=== PATIENT | male | born 1955 | race Caucasian/White ===

== ENCOUNTER 2016-09-30 07:21 | Inpatient (IN) | payer BC, OTHER ==
[~2016-09-30] VITALS: Ht 170.2 cm; Wt 87.6 kg
[2016-09-30] MEDS ORDERED: SODIUM CHLORIDE 0.9% 1000ML 1,000 ML IV STA (07:42)
[2016-09-30 07:52] LABS: BASO % 0.2 %; BASO ABS # 0.01 K/uL (0-0.2); COMPLETE YES; EOS % 3.1 %; HEMATOCRIT 32.5 % (42-52); IG% 0.2 %; LYMPH % 22.9 %; LYMPH ABS # 1.46 K/uL (1.2-3.4); MEAN CELL VOLUME 89.5 fL (80-100); MEAN CORPUSCULAR HEMOGLOBIN 31.4 pg (25-34); MEAN CORPUSCULAR HGB CONC 35.1 g/dl (32-36); MEAN PLATELET VOLUME 10.5 fL (7.4-10.4); MONO % 5.6 %; PLATELET COUNT 151 K/uL (130-400); RED BLOOD COUNT 3.63 M/uL (4.7-6.1); WHITE BLOOD COUNT 6.38 K/uL (4.8-10.8)
[2016-09-30 07:56] LABS: ISTAT CREATININE 0.7 mg/dl (0.6-1.3); ISTAT HEMOGLOBIN 10.9 g/dl (14.0-18.0); ISTAT IONIZED CALCIUM 1.3 mmol/l (1.12-1.32)
[2016-09-30] MEDS ORDERED: PANTOprazole INJ 80 MG in DEXTROSE 5% 100ML IV SCH (08:00)
[2016-09-30 08:04] LABS: PARTIAL THROMBOPLASTIN RATIO 0.9; PROTHROMBIN TIME (PATIENT) 10.7 SECONDS (9.0-12.0)
[2016-09-30 08:05] LABS: ALT/SGPT 25 U/L (12-78); AST/SGOT 16 U/L (15-37); BLOOD UREA NITROGEN 42 mg/dl (7-18); BUN/CREATININE RATIO 51.4 (10-20); CALCIUM 9.1 mg/dl (8.5-10.1); CARBON DIOXIDE 25 mmol/L (21-32); CHLORIDE 112 mmol/L (98-107); CREATININE 0.81 mg/dl (0.60-1.40); GLUCOSE 117 mg/dl (70-99); POTASSIUM 3.9 mmol/L (3.5-5.1); SODIUM 142 mmol/L (136-145)
[2016-09-30 08:10] LABS: ALKALINE PHOSPHATASE 56 U/L (45-117); CKMB/CK RATIO 2.4 (0-3.0)
[2016-09-30] MEDS ORDERED: CETITAB27 PO (08:10)
[2016-09-30] MEDS ORDERED: CALC500C3 PO (08:11)
[2016-09-30] MEDS ORDERED: PANTOprazole INJ 40 MG in DEXTROSE 5% 100ML IV SCH (08:15)
--- NOTE | 2016-09-30 08:15 | DIAGNOSTIC IMAGING REPORT ---
CHEST ONE VIEW PORTABLE CLINICAL HISTORY: 61 years-old Male presenting with EVALUATE GI BLEED. TECHNIQUE: Portable upright AP view of the chest was obtained. COMPARISON: None. FINDINGS: Cardiomediastinal silhouette normal. Lungs and pleural spaces clear. Osseous structures and upper abdomen normal. IMPRESSION: 1. No acute cardiopulmonary disease. Electronically signed by: Son Denton 09/30/2016 8:14 AM Dictated Date/Time: 09/30/2016 8:13 AM
--- NOTE | 2016-09-30 08:33 | EMERGENCY ROOM VISIT NOTE ---
History Report prepared by Reza: Pj Hicks Under the Supervision of: Dr. Antolin Estrada D.O. First contact with patient: 07:31 Chief Complaint: SYNCOPE (NEAR SYNCOPE) Stated Complaint: NEAR SYNCOPE Nursing Triage Summary: pt reports last night started having diarrhea noticed dark tarry stools this am upon waking had another dark tarry stool, had near syncopal episode upon ems arrival pt was pale and lying on floor felt like he was going to pass out. adb discomfort feeling like he had heartburn for a couple days. took zantac last night. pt is now alert and oriented. no longer pale History of Present Illness The patient is a 61 year old male who presents to the Emergency Room with complaints of lightheadedness occurring this morning. Last night, the patient had an episode of diarrhea with a large amount of blood. This morning when he woke up, he became hot, sweaty, and lightheaded. He had another episode of diarrhea with a large amount of blood this morning. As he was leaving the bathroom, he had worsened lightheadedness and he lowered himself to the floor. He denies any injuries. He did not hit his head. He currently reports mild nausea and lightheadedness. He denies any pain. He denies any abdominal pain, or any other complaints. He had been at baseline prior to the onset of his symptoms. The patient has a history of colonoscopy occurring about 10 years ago and he was treated for an esophageal stricture. He does not have any medical problems. Source of History: patient Onset: this morning Position: other (global) Symptom Intensity: No pain Quality: other (lightheadedness) Associated Symptoms: + nausea, No abdominal pain Review of Systems See HPI for pertinent positives & negatives. A total of 10 systems reviewed and were otherwise negative. Past Medical & Surgical Medical Problems: (1) Dysphagia (2) Esophageal stricture Surgical Problems: (1) H/O colonoscopy Family History Patient reports no known family medical history. Social History Smoking Status: Never Smoker Marital Status: Housing Status: lives with family Occupation Status: employed Current/Historical Medications Scheduled Calcium Carbonate (Tums), 2 TAB PO UD Cetirizine/Pseudoephedrine (Zyrtec-D Er 5MG/120MG), 1 TAB PO Q12H Allergies Coded Allergies: No Known Allergies (Unverified , 09/30/16) Physical Exam Vital Signs Date Time Temp Pulse Resp B/P (MAP) Pulse Ox O2 Delivery O2 Flow Rate FiO2 09/30/16 08:18 87 18 111/73 98 Room Air 09/30/16 07:38 82 09/30/16 07:27 97 Room Air 09/30/16 07:27 36.6 87 16 122/76 97 Room Air Physical Exam CONSTITUTIONAL/VITAL SIGNS: Reviewed / noted above. GENERAL: Non-toxic in appearance. There is some dried blood on the patient's legs from his recent event. INTEGUMENTARY: Warm, dry, and [place] Level. HEAD: Normocephalic. EYES: without scleral icterus or trauma. ENT/OROPHARYNX: clear and moist. LYMPHADENOPATHY/NECK: Is supple without lymphadenopathy or meningismus. RESPIRATORY: Lungs clear and equal. CARDIOVASCULAR: Regular rate and rhythm. GI/ABDOMEN: Soft and nontender. No organomegaly or pulsatile mass. No rebound or guarding. Normal bowel sounds. EXTREMITIES: Warm and well perfused. BACK: No CVA tenderness. NEUROLOGICAL: Intact without focal deficits. PSYCHIATRIC: normal affect. MUSCULOSKELETAL: Normally developed with good muscle tone. Medical Decision & Procedures ER Provider Diagnostic Interpretation: X ray results and stated below per my interpretation and radiology interpretation. CHEST ONE VIEW PORTABLE CLINICAL HISTORY: 61 years-old Male presenting with EVALUATE GI BLEED. TECHNIQUE: Portable upright AP view of the chest was obtained. COMPARISON: None. FINDINGS: Cardiomediastinal silhouette normal. Lungs and pleural spaces clear. Osseous structures and upper abdomen normal. IMPRESSION: 1. No acute cardiopulmonary disease. Electronically signed by: Son Denton 09/30/2016 8:14 AM Dictated Date/Time: 09/30/2016 8:13 AM Laboratory Results 09/30/16 07:35 Red Blood Count 3.63, Mean Corpuscular Volume 89.5, Mean Corpuscular Hemoglobin 31.4, Mean Corpuscular Hemoglobin Concent 35.1, Mean Platelet Volume 10.5, Neutrophils (%) (Auto) 68.0, Lymphocytes (%) (Auto) 22.9, Monocytes (%) (Auto) 5.6, Eosinophils (%) (Auto) 3.1, Basophils (%) (Auto) 0.2, Neutrophils # (Auto) 4.34, Lymphocytes # (Auto) 1.46, Monocytes # (Auto) 0.36, Eosinophils # (Auto) 0.20, Basophils # (Auto) 0.01 09/30/16 07:35 Test 09/30/16 07:35 09/30/16 07:43 White Blood Count 6.38 K/uL (4.8-10.8) Red Blood Count 3.63 M/uL (4.7-6.1) Hemoglobin 11.4 g/dL (14.0-18.0) Hematocrit 32.5 % (42-52) Mean Corpuscular Volume 89.5 fL (80-100) Mean Corpuscular Hemoglobin 31.4 pg (25-34) Mean Corpuscular Hemoglobin Concent 35.1 g/dl (32-36) Platelet Count 151 K/uL (130-400) Mean Platelet Volume 10.5 fL (7.4-10.4) Neutrophils (%) (Auto) 68.0 % Lymphocytes (%) (Auto) 22.9 % Monocytes (%) (Auto) 5.6 % Eosinophils (%) (Auto) 3.1 % Basophils (%) (Auto) 0.2 % Neutrophils # (Auto) 4.34 K/uL (1.4-6.5) Lymphocytes # (Auto) 1.46 K/uL (1.2-3.4) Monocytes # (Auto) 0.36 K/uL (0.11-0.59) Eosinophils # (Auto) 0.20 K/uL (0-0.5) Basophils # (Auto) 0.01 K/uL (0-0.2) RDW Standard Deviation 40.0 fL (36.4-46.3) RDW Coefficient of Variation 12.3 % (11.5-14.5) Immature Granulocyte % (Auto) 0.2 % Immature Granulocyte # (Auto) 0.01 K/uL (0.00-0.02) Prothrombin Time 10.7 SECONDS (9.0-12.0) Prothromb Time International Ratio 1.0 (0.9-1.1) Activated Partial Thromboplast Time 23.8 SECONDS (21.0-31.0) Partial Thromboplastin Ratio 0.9 Est Creatinine Clear Calc Drug Dose 100.9 ml/min Estimated GFR () 110.4 Estimated GFR (Non- 95.3 BUN/Creatinine Ratio 51.4 (10-20) Calcium Level 9.1 mg/dl (8.5-10.1) Total Bilirubin 0.4 mg/dl (0.2-1) Direct Bilirubin 0.1 mg/dl (0-0.2) Aspartate Amino Transf (AST/SGOT) 16 U/L (15-37) Alanine Aminotransferase (ALT/SGPT) 25 U/L (12-78) Alkaline Phosphatase 56 U/L (45-117) Total Creatine Kinase 72 U/L (39-308) Creatine Kinase MB 1.7 ng/ml (0.5-3.6) Creatine Kinase MB Ratio 2.4 (0-3.0) Troponin I < 0.015 ng/ml (0-0.045) Total Protein 5.8 gm/dl (6.4-8.2) Albumin 3.1 gm/dl (3.4-5.0) Bedside Hemoglobin 10.9 g/dl (14.0-18.0) Bedside Hematocrit 32 % (42-52) Bedside Sodium 141 mEq/L (135-144) Bedside Potassium 3.8 mEq/L (3.3-5.0) Bedside Chloride 104 mEq/L (101-112) Bedside Total CO2 24 mEq/l (24-31) Anion Gap 18.0 mmol/L (16-25) Bedside Blood Urea Nitrogen 39 mg/dl (7-18) Bedside Creatinine 0.7 mg/dl (0.6-1.3) Bedside Glucose (other) 122 mg/dl (70-99) Bedside Ionized Calcium (Miguelina) 1.30 mmol/l (1.12-1.32) Laboratory results as stated above per my review. Medications Administered Medications (Trade) Dose Ordered Sig/Karsten Route Start Time Stop Time Status Last Admin Dose Admin Sodium Chloride 1,000 ml @ 150 mls/hr Q6H40M STAT IV 09/30/16 07:42 09/30/16 14:21 09/30/16 08:16 150 MLS/HR Pantoprazole Sodium 80 mg/ Dextrose 120 ml @ 480 mls/hr TODAY@0800 IV 09/30/16 08:00 09/30/16 08:14 DC 09/30/16 08:17 480 MLS/HR Pantoprazole Sodium 40 mg/ Dextrose 100 ml @ 20 mls/hr Q5H IV 09/30/16 08:15 09/30/16 13:14 09/30/16 08:17 20 MLS/HR ECG Indication: other (Lightheadedness) Rate (beats per minute): 78 Rhythm: normal sinus Findings: no acute ischemic change, no ectopy ED Course 0731: Previous medical records were reviewed. The patient was evaluated in room B02. A complete history and physical examination was performed. 0742: Pantoprazole Sodium 1 ea IV, Sodium Chloride 1000 ml @ 150 mls/hr IV 0800: Pantoprazole Sodium 80 mg/Dextrose 120 ml @ 480 mls/hr IV 0815: Pantoprazole Sodium 40 mg/Dextrose 100 ml @ 20 mls/hr IV 0754: On reevaluation, the patient is resting comfortably. I discussed the results and findings with him. He verbalized agreement of the treatment plan. I [facility]. The patient will be evaluated for further management and care. Medical Decision Medication Reconciliation: I attest that I have personally reviewed the patient' s current medication list. Blood pressure Screening: Patient was found to have normal blood pressure on screening and does not require follow-up. Differential diagnosis: Etiologies such as diverticulosis, AVM, coagulopathy, colitis, inflammatory bowel disease, malignancy, Sonia-Richardson tear, esophagitis, peptic ulcer disease , variceal bleed, gastritis, epistaxis, fissure, hemorrhoids, as well as others were entertained. This is a 61-year-old male who presents to the ED with a chief complaint of GI bleeding in the near syncopal episode. The patient states that last night he had his first episode of intestinal bleeding. He went to bed and then awoke this morning and felt like he had to move his bowels again. He had another bloody bowel movement this morning and shortly thereafter had a near syncopal episode. He states that he lowered himself to the ground. He denies injury. The patient has no specific complaints at this time. His vital signs are normal. Physical exam revealed some dry blood on his right leg. EKG shows a normal sinus rhythm at a rate of 78. BUN is 39 and hemoglobin was 10.9. Chemistry panel is otherwise unremarkable. The patient was given IV fluids and IV Protonix. He was typed and crossed and will be seen by the hospitalist for further inpatient evaluation and care. Consults Time Called: 0748 Consulting Physician: Dr. Cuevas of [facility] Returned Call: [phone] Cue[facility] of the [facility]. Impression Primary Impression: GI bleed Additional Impression: Near syncope Scribe Attestation The scribe's documentation has been prepared under my direction and personally reviewed by me in its entirety. I confirm that the note above accurately reflects all work, treatment, procedures, and medical decision making performed by me. Departure Information Dispostion Being Evaluated By Hospitalist Patient Instructions My [facility] Problem Qualifiers
[2016-09-30] MEDS: SODIUM CHLORIDE 0.9% 1000ML 1,000 ML IV SCH ×2 (08:36→16:40)
[2016-09-30 08:45] VITALS: O2SAT 98; Ht 170.2 cm; Wt 87.6 kg
[2016-09-30] MEDS ORDERED: ACETAMINOPHEN 325 MG TAB PO PRN (08:45)
[2016-09-30] MEDS ORDERED: ONDANSETRON INJ 2 MG/ML 2 ML VIAL IV PRN (08:45)
[2016-09-30] MEDS ORDERED: POLYETHYLENE (MIRALAX) 17 GM PACK PO PRN (08:45)
[2016-09-30] MEDS ORDERED: OPTIRAY 320 IV PRN (09:15)
[2016-09-30 09:48] VITALS: BP 127/69; PULSE 94; TEMP 36.7; O2SAT 97
--- NOTE | 2016-09-30 10:26 | History and Physical ---
History & Physical Date & Time of Service: Sep 30, 2016 at 10:08 Chief Complaint: Near Syncope, Gi Bleed Primary Care Physician: No Doctor, Assigned History of Present Illness Source: patient, family Patient is a 61 yo male who presents to the ER for evaluation of bleeding per rectum and an episode of near syncope. The patient reports being in his usual state of health yesterday, he ate a late dinner and afterwards went to go to the bathroom and had an uncomfortable sensation in his abdomen accompanied by rumbling, and he subsequently had a large volume of diarrhea with dark red blood. He states that he continued to experience rumbling sensation and discomfort but not pain, until he took a zyrtec-D for congestion and went to bed. He awoke at 1:30 AM feeling very flushed and diaphoretic with symptoms of heartburn and took 2 tums. He didn't find much relief so he took 2 more tums and went to bed. He awoke this AM with similar abdominal discomfort/rumbling, and had another episode of diarrhea with dark red blood. He came out of the bathroom and felt lightheaded and dizzy and slowly slumped to the ground while maintaining consciousness. He also continued to leak dark red blood down his leg from his rectum after coming out of the bathroom this AM. No prior history of similar symptoms. Denies any history of anticoagulation. He takes advil occasionally for migraine headaches, last time was September 26 and . He takes no medications otherwise. Denies any symptoms of abdominal pain, nausea, or vomiting. Past Medical/Surgical History Medical Problems: (1) Dysphagia Status: Resolved (2) Esophageal stricture Status: Resolved Surgical Problems: (1) H/O colonoscopy Status: Resolved Family History Patient reports no known family medical history. Mother: colitis Brother: Liver cancer Social History Smoking Status: Never Smoker Alcohol Use: occasionally Drug Use: none Marital Status: Occupational Status: employed Multi-Drug Resistant Organisms History of MDRO: No Allergies Coded Allergies: No Known Allergies (Unverified , 09/30/16) Home Medications Scheduled Calcium Carbonate (Tums), 2 TAB PO UD Cetirizine/Pseudoephedrine (Zyrtec-D Er 5MG/120MG), 1 TAB PO Q12H Review of Systems Constitutional: + sweats, No fever, No chills Eyes: No eye pain, No diplopia, No problem reported ENT: + nasal symptoms, + trouble swallowing (occasionally will gag/choke on phlegm), No hearing loss, No sore throat, No dental problems Respiratory: No cough, No sputum, No wheezing, No shortness of breath Cardiovascular: No chest pain, No edema, No palpitations, No problem reported Abdomen: + diarrhea, + GI bleeding, No pain, No constipation Musculoskeletal: No joint pain, No muscle pain, No swelling, No calf pain Genitourinary - Male: No problem reported Neurologic: + problem reported (near syncope, dizziness, lightheadedness) Psychiatric: No problem reported Endocrine: No problem reported Hematologic / Lymphatic: No problem reported Physical Exam Vital Signs Date Time Temp Pulse Resp B/P (MAP) Pulse Ox O2 Delivery O2 Flow Rate FiO2 09/30/16 09:48 36.7 94 18 127/69 (88) 97 Room Air 09/30/16 09:23 85 18 119/72 96 09/30/16 08:51 83 09/30/16 08:45 98 Room Air 09/30/16 08:18 87 18 111/73 98 Room Air 09/30/16 07:38 82 09/30/16 07:27 97 Room Air 09/30/16 07:27 36.6 87 16 122/76 97 Room Air General Appearance: WD/WN, no apparent distress Head: normocephalic, atraumatic Eyes: PERRL, EOMI, sclerae normal ENT: hearing grossly normal Neck: no JVD, trachea midline Respiratory/Chest: chest non-tender, lungs clear, normal breath sounds, no respiratory distress, no accessory muscle use Cardiovascular: regular rate, rhythm, no edema, no gallop, no JVD, no murmur Abdomen/GI: normal bowel sounds, non tender, soft, no organomegaly, + fecal occult blood Back: normal range of motion Extremities/Musculoskelatal: no pedal edema Neurologic/Psych: no motor/sensory deficits, alert, normal mood/affect, oriented x 3 Skin: normal color, warm/dry, no rash Diagnostics Laboratory Results Results Past 24 Hours Test 09/30/16 07:35 09/30/16 07:43 Range/Units White Blood Count 6.38 4.8-10.8 K/uL Red Blood Count 3.63 4.7-6.1 M/uL Hemoglobin 11.4 14.0-18.0 g/dL Hematocrit 32.5 42-52 % Mean Corpuscular Volume 89.5 80-100 fL Mean Corpuscular Hemoglobin 31.4 25-34 pg Mean Corpuscular Hemoglobin Concent 35.1 32-36 g/dl Platelet Count 151 130-400 K/uL Mean Platelet Volume 10.5 7.4-10.4 fL Neutrophils (%) (Auto) 68.0 % Lymphocytes (%) (Auto) 22.9 % Monocytes (%) (Auto) 5.6 % Eosinophils (%) (Auto) 3.1 % Basophils (%) (Auto) 0.2 % Neutrophils # (Auto) 4.34 1.4-6.5 K/uL Lymphocytes # (Auto) 1.46 1.2-3.4 K/uL Monocytes # (Auto) 0.36 0.11-0.59 K/uL Eosinophils # (Auto) 0.20 0-0.5 K/uL Basophils # (Auto) 0.01 0-0.2 K/uL RDW Standard Deviation 40.0 36.4-46.3 fL RDW Coefficient of Variation 12.3 11.5-14.5 % Immature Granulocyte % (Auto) 0.2 % Immature Granulocyte # (Auto) 0.01 0.00-0.02 K/uL Prothrombin Time 10.7 9.0-12.0 SECONDS Prothromb Time International Ratio 1.0 0.9-1.1 Activated Partial Thromboplast Time 23.8 21.0-31.0 SECONDS Partial Thromboplastin Ratio 0.9 Sodium Level 142 136-145 mmol/L Potassium Level 3.9 3.5-5.1 mmol/L Chloride Level 112 98-107 mmol/L Carbon Dioxide Level 25 21-32 mmol/L Anion Gap 5.0 18.0 16-25 mmol/L Blood Urea Nitrogen 42 7-18 mg/dl Creatinine 0.81 0.60-1.40 mg/dl Est Creatinine Clear Calc Drug Dose 100.9 ml/min Estimated GFR () 110.4 Estimated GFR (Non- 95.3 BUN/Creatinine Ratio 51.4 10-20 Random Glucose 117 70-99 mg/dl Calcium Level 9.1 8.5-10.1 mg/dl Total Bilirubin 0.4 0.2-1 mg/dl Direct Bilirubin 0.1 0-0.2 mg/dl Aspartate Amino Transf (AST/SGOT) 16 15-37 U/L Alanine Aminotransferase (ALT/SGPT) 25 12-78 U/L Alkaline Phosphatase 56 45-117 U/L Total Creatine Kinase 72 39-308 U/L Creatine Kinase MB 1.7 0.5-3.6 ng/ml Creatine Kinase MB Ratio 2.4 0-3.0 Troponin I < 0.015 0-0.045 ng/ml Total Protein 5.8 6.4-8.2 gm/dl Albumin 3.1 3.4-5.0 gm/dl Bedside Hemoglobin 10.9 14.0-18.0 g/dl Bedside Hematocrit 32 42-52 % Bedside Sodium 141 135-144 mEq/L Bedside Potassium 3.8 3.3-5.0 mEq/L Bedside Chloride 104 101-112 mEq/L Bedside Total CO2 24 24-31 mEq/l Bedside Blood Urea Nitrogen 39 7-18 mg/dl Bedside Creatinine 0.7 0.6-1.3 mg/dl Bedside Glucose (other) 122 70-99 mg/dl Bedside Ionized Calcium (Miguelina) 1.30 1.12-1.32 mmol/l Impression Assessment and Plan GI BLEED: -dark red blood per rectum, likely lower GI but will continue protonix drip for now in case this is upper GI source -NPO -GI consult -IV fluids -type and screen -monitor H&H q 6 hours and transfuse if Hb is dropping ANEMIA: Acute due to blood loss -will check outpatient records to find baseline Hb -discussed the possible need for a blood transfusion if further drop occurs, patient agreeable PRIOR HX OF ESOPHAGEAL RING DILATION: -patient reports undergoing EGD/colonoscopy over 10 years ago when he had an esophageal ring that required dilation OCCASIONAL MIGRAINE HUGHES: -was taking PRN advil infrequently; advised to hold off on NSAID use pending further eval Level of Care Telemetry Advanced Directives Existing Living Will: Yes Existing Power of [employer] Field Agent: Yes Resuscitation Status FULL RESUSCITATION VTE Prophylaxis VTE Risk Assessment Done? Y/N: Yes Risk Level: Moderate Given or contraindicated: SCD's
--- NOTE | 2016-09-30 11:01 | Gastrointestinal Consultation ---
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 After dinner around 7P last night pt started having mid abd cramping, and urgency to defecate. He noticed dark colored stools (like [place] color) then. reported it to be sticky as well. 2 more episodes around 1:30A and 6:30A. He was taking TUMs overnight for indigestion symptoms.This AM almost fainted thus family brought him to ED. He hasn't had any more BM since coming to ED. He denies any fever, chills, n/v, sick contact. He denies any recent antibx, undercooked, raw foods. Took 6 tabs of Ibuprofen in last 2 days for HAs, denies any regular use otherwise. Denies any ASA. Hgb 11 , no coagulopathy, BUN noted to be up at 42. CXR clear. He had previous EGD/ Colonoscopy in 2004 - EGD w Schatzki ring dilated to 20, hiatal hernial, erythematous gastropathy, colonoscopy normal. + family hx of colitis, ? diverticulitis. Past Medical/Surgical History Medical Problems: (1) GI bleed Status: Acute (2) Near syncope Status: Acute Past Medical History: See above Past Surgical History: Skin grafting to leg Family History Patient reports no known family medical history. Social History Smoking Status: Never Smoker Drug Use: none Marital Status: Housing Status: lives with family Occupation Status: employed Allergies Coded Allergies: No Known Allergies (Unverified , 09/30/16) Current Medications Home Meds and Scripts Medications Dose Route/Sig Max Daily Dose Days Date Category Tums (Calcium Carbonate) 500 Mg Chew 2 Tab PO UD 09/30/16 Reported Zyrtec-D Er 5MG/120MG (Cetirizine/Pseudoephedrine) Tabcr 1 Tab PO Q12H 09/30/16 Reported Review of Systems Constitutional: No fever, No chills Respiratory: No cough, No shortness of breath Cardiac: No chest pain, No edema Abdomen: + see HPI, + pain, + GI bleeding, No nausea, No vomiting, No diarrhea Physical Exam Date Time Temp Pulse Resp B/P (MAP) Pulse Ox O2 Delivery O2 Flow Rate FiO2 09/30/16 09:48 36.7 94 18 127/69 (88) 97 Room Air 09/30/16 09:23 85 18 119/72 96 09/30/16 08:51 83 09/30/16 08:45 98 Room Air 09/30/16 08:18 87 18 111/73 98 Room Air 09/30/16 07:38 82 09/30/16 07:27 97 Room Air 09/30/16 07:27 36.6 87 16 122/76 97 Room Air General Appearance: WD/WN, no apparent distress Eyes: normal inspection, PERRL, EOMI Neck: supple, no JVD, trachea midline Respiratory/Chest: normal breath sounds, no respiratory distress, no accessory muscle use Cardiovascular: regular rate, rhythm, no gallop, no murmur Abdomen: normal bowel sounds, non tender, soft Extremities: normal inspection, no pedal edema, no calf tenderness Neurologic/Psych: alert, normal mood/affect, oriented x 3 Skin: normal color, no jaundice, no rash Laboratory Results Last 24 Hours Test 09/30/16 07:35 09/30/16 07:43 White Blood Count 6.38 K/uL Red Blood Count 3.63 M/uL Hemoglobin 11.4 g/dL Hematocrit 32.5 % Mean Corpuscular Volume 89.5 fL Mean Corpuscular Hemoglobin 31.4 pg Mean Corpuscular Hemoglobin Concent 35.1 g/dl Platelet Count 151 K/uL Mean Platelet Volume 10.5 fL Neutrophils (%) (Auto) 68.0 % Lymphocytes (%) (Auto) 22.9 % Monocytes (%) (Auto) 5.6 % Eosinophils (%) (Auto) 3.1 % Basophils (%) (Auto) 0.2 % Neutrophils # (Auto) 4.34 K/uL Lymphocytes # (Auto) 1.46 K/uL Monocytes # (Auto) 0.36 K/uL Eosinophils # (Auto) 0.20 K/uL Basophils # (Auto) 0.01 K/uL RDW Standard Deviation 40.0 fL RDW Coefficient of Variation 12.3 % Immature Granulocyte % (Auto) 0.2 % Immature Granulocyte # (Auto) 0.01 K/uL Prothrombin Time 10.7 SECONDS Prothromb Time International Ratio 1.0 Activated Partial Thromboplast Time 23.8 SECONDS Partial Thromboplastin Ratio 0.9 Sodium Level 142 mmol/L Potassium Level 3.9 mmol/L Chloride Level 112 mmol/L Carbon Dioxide Level 25 mmol/L Anion Gap 5.0 mmol/L 18.0 mmol/L Blood Urea Nitrogen 42 mg/dl Creatinine 0.81 mg/dl Est Creatinine Clear Calc Drug Dose 100.9 ml/min Estimated GFR () 110.4 Estimated GFR (Non- 95.3 BUN/Creatinine Ratio 51.4 Random Glucose 117 mg/dl Calcium Level 9.1 mg/dl Total Bilirubin 0.4 mg/dl Direct Bilirubin 0.1 mg/dl Aspartate Amino Transf (AST/SGOT) 16 U/L Alanine Aminotransferase (ALT/SGPT) 25 U/L Alkaline Phosphatase 56 U/L Total Creatine Kinase 72 U/L Creatine Kinase MB 1.7 ng/ml Creatine Kinase MB Ratio 2.4 Troponin I < 0.015 ng/ml Total Protein 5.8 gm/dl Albumin 3.1 gm/dl Bedside Hemoglobin 10.9 g/dl Bedside Hematocrit 32 % Bedside Sodium 141 mEq/L Bedside Potassium 3.8 mEq/L Bedside Chloride 104 mEq/L Bedside Total CO2 24 mEq/l Bedside Blood Urea Nitrogen 39 mg/dl Bedside Creatinine 0.7 mg/dl Bedside Glucose (other) 122 mg/dl Bedside Ionized Calcium (Miguelina) 1.30 mmol/l Impression Patient is a 61 year old male w dark colored, liquid, sticky stools, mid abd cramping found to be anemic on admission. Likely has UGI bleeding such as with PUD. Plan - PPI bolus and gtt - Monitor H/H and transfuse prn - Keep NPO for now - CT abd/pelvis to r/o infection/ischemic colitis - Stool cx, Cdiff. - He already started drinking CT contrast material, thus unable to perform EGD eval today; will inform GI physician covering over weekend (Dr. Staton) for possible EGD to be done if anemia worse, or pt continues to have melena, or start having blood emesis. ATTESTATION: I have performed a history and physical examination of this patient and reviewed the electronic record. Specifically, on physical examination there is no abdominal tenderness. I have discussed the case with DU Ritter. The above note reflects my findings, conclusions, and recommendations. Pepe Arreaga MD
[2016-09-30 11:56] VITALS: BP 110/71; PULSE 82; TEMP 36.4; O2SAT 97
--- NOTE | 2016-09-30 12:22 | DIAGNOSTIC IMAGING REPORT ---
ABD/PELVIS IV AND ORAL CONT HISTORY:61 yearsMal[age], GI bleed COMPARISON: Chest radiograph 09/30/2016. TECHNIQUE: Multiple axial CT images of the abdomen and pelvis were obtained following the intravenous administration of 92 mL Optiray 320. Oral contrast was also utilized. FINDINGS: The lung bases are clear. There is no gross pneumoperitoneum. The imaged cardiac chambers appear unremarkable. The liver, spleen, pancreas, adrenal glands and gallbladder appear to be within normal limits. 3 mm low attenuating circumscribed lesion of the superior pole left kidney is too small to characterize, however suggests cyst. Kidneys otherwise appear to be within normal limits. Urinary bladder and prostate are unremarkable. Surgical clips are seen within the upper scrotum. The abdominal aorta is normal in course and caliber. No pathologic adenopathy. 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 There is a small diverticulum involving the second portion of the duodenum, 3.0 cm. No bowel obstruction. Appendix and colon appear normal. No focal bowel wall thickening or inflammatory changes to suggest colitis. Soft tissues are unremarkable. The bones are intact. IMPRESSION: 1. No acute intra-abdominal or intrapelvic abnormality identified. No evidence of colitis or findings to explain the patient's gastrointestinal bleeding. 2. Normal appendix. 3. Incidental note is made of a 3.0 cm duodenal diverticulum. The above report was generated using voice recognition software. It may contain grammatical, syntax or spelling errors. Electronically signed by: Marcel Nolasco 09/30/2016 12:21 PM Dictated Date/Time: 09/30/2016 12:15 PM
[2016-09-30 12:41] LABS: HEMATOCRIT 30.4 % (42-52); MEAN CELL VOLUME 90.7 fL (80-100); MEAN CORPUSCULAR HEMOGLOBIN 31.6 pg (25-34); MEAN CORPUSCULAR HGB CONC 34.9 g/dl (32-36); MEAN PLATELET VOLUME 10.4 fL (7.4-10.4); PLATELET COUNT 151 K/uL (130-400); RED BLOOD COUNT 3.35 M/uL (4.7-6.1); WHITE BLOOD COUNT 9.36 K/uL (4.8-10.8)
[2016-09-30 13:04] LABS: CKMB/CK RATIO 2.8 (0-3.0)
[2016-09-30 13:13] LABS: CALCIUM 8.9 mg/dl (8.5-10.1); CREATININE 0.89 mg/dl (0.60-1.40); POTASSIUM 3.9 mmol/L (3.5-5.1)
[2016-09-30] MEDS: PANTOprazole INJ 40 MG in DEXTROSE 5% 100ML 100 ML IV SCH ×3 (13:24→21:53)
[2016-09-30] MEDS ORDERED: IV FLUIDS COMPLETED PRN (13:45)
[2016-09-30 14:29] VITALS: BP 110/71; PULSE 82; TEMP 36.4; O2SAT 97
[2016-09-30] MEDS ORDERED: FENTANYL CITRATE INJ 50 MCG/1 ML 2 ML VIAL ONE (15:43)
[2016-09-30] MEDS ORDERED: PROPOFOL IV EMULSION 10 MG/ML 20 ML VIAL IV ONE (15:59)
[2016-09-30] MEDS ORDERED: LIDOCAINE HCL 2% 2 ML VIAL (20MG/ML) ONE (15:59)
--- NOTE | 2016-09-30 16:01 | GI REPORT ---
Procedure Date: 09/30/2016 3:21 PM Procedure: Upper GI endoscopy Indications: Melena Medicines: General Anesthesia Complications: No immediate complications. Estimated blood loss: None. Estimated Blood Loss: Estimated blood loss: none. Procedure: Pre-Anesthesia Assessment: - Pre-Anesthesia Assessment: - Prior to the procedure, a History and Physical was performed, and patient medications, allergies and sensitivities were reviewed. The patient's tolerance of previous anesthesia was reviewed. Please see [employer] for complete details. - The risks and benefits of the procedure and the sedation options and risks were discussed with the patient. All questions were answered and informed consent was obtained. - Patient identification and proposed procedure were verified prior to the procedure by the physician and the nurse. The procedure was verified in the pre-procedure area in the procedure room. After obtaining informed consent, the endoscope was passed carefully and meticuously under direct vision and only advanced when the lumen was clearly identified, C02 insuflation was utilized throughout the entirity of the procedure. Throughout the procedure, the patient's blood pressure, pulse, and oxygen saturations were monitored continuously. After obtaining informed consent, the endoscope was passed under direct vision. Throughout the procedure, the patient's blood pressure, pulse, and oxygen saturations were monitored continuously. The scope was introduced through the mouth, and advanced to the second part of duodenum. The upper GI endoscopy was accomplished without difficulty. The patient tolerated the procedure well. Findings: The examined esophagus was normal. The entire examined stomach was normal. Two non-bleeding cratered duodenal ulcers with a nonbleeding visible vessel (Yosi Class IIa) were found in the apex of the duodenal bulb. The largest lesion was 5 mm in largest dimension. To prevent bleeding, one hemostatic Cook clip was successfully placed (MR conditional). There was no bleeding during, and at the end, of the procedure. Impression: - Normal esophagus. - Normal stomach. - Multiple non-bleeding duodenal ulcers with a nonbleeding visible vessel (Yosi Class IIa). Clip (MR conditional) was placed. - No specimens collected. Recommendation: - [facility]. - Give Protonix (pantoprazole): 8 mg/hr IV by continuous infusion for 3 days. - Clear liquid diet to start in 3 hours. - BID PPI for 2 months after d/c - If rebleeds consider repeat EGD vs IR embolization Umang Staton MD 09/30/2016 3:59:47 PM This report has been signed electronically. Note Initiated On: 09/30/2016 3:21 PM I attest to the content of the Intraoperative Record and orders documented therein, exceptions below
--- NOTE | 2016-09-30 16:54 | Anesthesiology Progress Note ---
Anesthesia Post Op Note Date & Time Sep 30, 2016 at 16:54 Vital Signs Pain Intensity: 0.0 Vital Signs Past 12 Hours Date Time Temp Pulse Resp B/P (MAP) Pulse Ox O2 Delivery O2 Flow Rate FiO2 09/30/16 16:28 74 20 125/70 (88) 98 Room Air 09/30/16 16:17 75 20 127/79 (95) 97 Room Air 09/30/16 16:06 89 20 106/58 (74) 96 Room Air 09/30/16 15:00 36.4 73 20 119/69 (86) 98 Room Air 09/30/16 14:29 36.4 82 16 110/71 97 Room Air 09/30/16 12:20 Room Air 09/30/16 11:56 36.4 82 16 110/71 (84) 97 Room Air 09/30/16 09:48 36.7 94 18 127/69 (88) 97 Room Air 09/30/16 09:23 85 18 119/72 96 09/30/16 08:51 83 09/30/16 08:45 98 Room Air 09/30/16 08:18 87 18 111/73 98 Room Air 09/30/16 07:38 82 09/30/16 07:27 97 Room Air 09/30/16 07:27 36.6 87 16 122/76 97 Room Air Notes Mental Status: alert / awake / arousable, participated in evaluation Pt Amnestic to Procedure: Yes Nausea / Vomiting: adequately controlled Pain: adequately controlled Airway Patency, RR, SpO2: stable & adequate BP & HR: stable & adequate Hydration State: stable & adequate Anesthetic Complications: no major complications apparent
[2016-09-30 19:02] LABS: HEMATOCRIT 29.1 % (42-52)
[2016-09-30 19:43] VITALS: BP 114/77; PULSE 72; TEMP 36.6; O2SAT 98
[2016-09-30 23:01] LABS: HEMATOCRIT 27.5 % (42-52)
[2016-10-01] VITALS (7 sets, daily range): BP systolic 107–141; BP diastolic 68–87; PULSE 73–83; TEMP 36.4–37.1; O2SAT 96–99
[2016-10-01 02:57] LABS: CKMB/CK RATIO 2.9 (0-3.0)
[2016-10-01] MEDS: PANTOprazole INJ 40 MG in DEXTROSE 5% 100ML 100 ML IV SCH ×4 (04:22→18:24)
[2016-10-01] MEDS: SODIUM CHLORIDE 0.9% 1000ML 1,000 ML IV SCH ×2 (04:22→14:22)
[2016-10-01 07:51] LABS: BUN/CREATININE RATIO 20.9 (10-20); CALCIUM 8.1 mg/dl (8.5-10.1); CREATININE 0.86 mg/dl (0.60-1.40)
--- NOTE | 2016-10-01 11:37 | Gastroenterology Progress Note ---
Progress Note Date of Service: Oct 01, 2016 Subjective Pt evaluation today including: conversation w/ patient, conversation w/ family , physical exam Doing well, sitting in chair, no lightheadedness, no signs of bleeding, Hb stable Medications Current Inpatient Medications Medications (Trade) Dose Ordered Sig/Karsten Route Start Time Stop Time Status Last Admin Dose Admin Sodium Chloride 1,000 ml @ 100 mls/hr Q10H IV 09/30/16 08:36 10/01/16 14:35 10/01/16 04:22 100 MLS/HR Acetaminophen (Tylenol Tab) 650 mg Q4H PRN PO 09/30/16 08:45 10/30/16 08:44 Ondansetron HCl (Zofran Inj) 4 mg Q6H PRN IV 09/30/16 08:45 10/30/16 08:44 Polyethylene (Miralax Powder Packet) 17 gm DAILY PRN PO 09/30/16 08:45 10/30/16 08:44 Pantoprazole Sodium 40 mg/ Dextrose 110 ml @ 20 mls/hr Q5H IV 09/30/16 13:15 10/30/16 13:14 10/01/16 09:48 20 MLS/HR Ioversol (Optiray 320) 125 ml UD PRN IV 09/30/16 09:15 10/04/16 09:14 Miscellaneous (Iv Fluids Completed) 1 ea PRN PRN N/A 09/30/16 13:45 09/30/17 13:44 Objective Vital Signs Date Time Temp Pulse Resp B/P (MAP) Pulse Ox O2 Delivery O2 Flow Rate FiO2 10/01/16 11:26 36.4 77 18 118/78 (91) 97 Room Air 10/01/16 07:57 37.1 83 16 116/70 (85) 96 Room Air 10/01/16 04:00 Room Air 10/01/16 03:35 37.0 76 18 107/68 (81) 97 Room Air 10/01/16 00:01 Room Air 10/01/16 00:00 36.6 73 20 115/72 (86) 97 Room Air 09/30/16 20:00 Room Air 09/30/16 19:43 36.6 72 20 114/77 (89) 98 Room Air 09/30/16 16:28 74 20 125/70 (88) 98 Room Air 09/30/16 16:17 75 20 127/79 (95) 97 Room Air 09/30/16 16:06 89 20 106/58 (74) 96 Room Air 09/30/16 16:00 Room Air 09/30/16 15:00 36.4 73 20 119/69 (86) 98 Room Air 09/30/16 14:29 36.4 82 16 110/71 97 Room Air 09/30/16 12:20 Room Air 09/30/16 11:56 36.4 82 16 110/71 (84) 97 Room Air Physical Exam General Appearance: WD/WN, no apparent distress, + pertinent finding (walking in room and sitting in chair, wants to eat) ENT: normal ENT inspection Neck: supple, no adenopathy Respiratory/Chest: chest non-tender Cardiovascular: regular rate, rhythm, no edema Abdomen: normal bowel sounds, non tender, soft, no organomegaly Extremities: normal range of motion 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 Laboratory Results Last 24 Hours Test 09/30/16 12:21 09/30/16 12:25 09/30/16 18:48 09/30/16 22:51 Bedside Glucose 107 mg/dl White Blood Count 9.36 K/uL Red Blood Count 3.35 M/uL Hemoglobin 10.6 g/dL 10.1 g/dL 10.0 g/dL Hematocrit 30.4 % 29.1 % 27.5 % Mean Corpuscular Volume 90.7 fL Mean Corpuscular Hemoglobin 31.6 pg Mean Corpuscular Hemoglobin Concent 34.9 g/dl RDW Standard Deviation 41.5 fL RDW Coefficient of Variation 12.5 % Platelet Count 151 K/uL Mean Platelet Volume 10.4 fL Sodium Level 140 mmol/L Potassium Level 3.9 mmol/L Chloride Level 108 mmol/L Carbon Dioxide Level 23 mmol/L Anion Gap 9.0 mmol/L Blood Urea Nitrogen 32 mg/dl Creatinine 0.89 mg/dl Est Creatinine Clear Calc Drug Dose 91.8 ml/min Estimated GFR () 106.2 Estimated GFR (Non- 91.6 BUN/Creatinine Ratio 36.0 Random Glucose 106 mg/dl Calcium Level 8.9 mg/dl Total Creatine Kinase 58 U/L 57 U/L Creatine Kinase MB 1.6 ng/ml 1.7 ng/ml Creatine Kinase MB Ratio 2.8 3.0 Troponin I < 0.015 ng/ml < 0.015 ng/ml Test 10/01/16 02:22 10/01/16 06:39 Total Creatine Kinase 52 U/L Creatine Kinase MB 1.5 ng/ml Creatine Kinase MB Ratio 2.9 Troponin I < 0.015 ng/ml Hemoglobin 9.6 g/dL Hematocrit 27.0 % Sodium Level 145 mmol/L Potassium Level 4.0 mmol/L Chloride Level 112 mmol/L Carbon Dioxide Level 26 mmol/L Anion Gap 7.0 mmol/L Blood Urea Nitrogen 18 mg/dl Creatinine 0.86 mg/dl Est Creatinine Clear Calc Drug Dose 95.1 ml/min Estimated GFR () 107.7 Estimated GFR (Non- 92.9 BUN/Creatinine Ratio 20.9 Random Glucose 89 mg/dl Calcium Level 8.1 mg/dl Assessment and Plan 61 yo presenting with melena and presyncope with EGD revealing two ulcers in the duodenal bulb-one with possible visible vessel s/p mechanical prophylactic clip -No signs of bleeding -Continue IV PPI for 72 hr total -BID PPI after d/c -Ok to advance to full liquids and then to regular food if tolerates -Call with any clinical change
[2016-10-01 12:31] LABS: HEMATOCRIT 31.8 % (42-52)
[2016-10-01 16:08] LABS: HEMATOCRIT 29.3 % (42-52)
--- NOTE | 2016-10-01 18:34 | Progress Note ---
Medicine Progress Note Date & Time of Visit: Oct 01, 2016 at 18:34. Subjective Patient denies any complaints. He has been tolerating clear liquids without difficulty. No additional episodes of syncope, dizziness, or lightheadedness. Still having diarrhea with dark red blood and melena. Reports stools are not large volume as they were before. No overnight events noted. Objective Last 8 Hrs Date Time Temp Pulse Resp B/P (MAP) Pulse Ox O2 Delivery O2 Flow Rate FiO2 10/01/16 16:02 36.6 76 18 141/87 (105) 99 Room Air 10/01/16 16:00 Room Air 10/01/16 12:00 Room Air 10/01/16 11:26 36.4 77 18 118/78 (91) 97 Room Air Physical Exam: GENERAL: Patient is in no acute distress. HEENT: No acute trauma, normocephalic, mucous membranes moist, no nasal congestion, no scleral icterus. NECK: No stridor, trachea is midline. LUNGS: Clear to auscultation bilaterally, no wheeze, no rhonchi, breath sounds equal. HEART: Without murmurs gallops or rubs, regular rate and rhythm. ABDOMEN: Soft, nontender, bowel sounds positive EXTREMITIES: No cyanosis or edema NEUROLOGIC: Oriented x 3, no acute motor or sensory deficits, no focal weakness. SKIN: No rash, no jaundice, no diaphoresis. Laboratory Results: Last 24 Hours Test 09/30/16 18:48 09/30/16 22:51 10/01/16 02:22 10/01/16 06:39 Hemoglobin 10.1 g/dL 10.0 g/dL 9.6 g/dL Hematocrit 29.1 % 27.5 % 27.0 % Total Creatine Kinase 57 U/L 52 U/L Creatine Kinase MB 1.7 ng/ml 1.5 ng/ml Creatine Kinase MB Ratio 3.0 2.9 Troponin I < 0.015 ng/ml < 0.015 ng/ml Sodium Level 145 mmol/L Potassium Level 4.0 mmol/L Chloride Level 112 mmol/L Carbon Dioxide Level 26 mmol/L Anion Gap 7.0 mmol/L Blood Urea Nitrogen 18 mg/dl Creatinine 0.86 mg/dl Est Creatinine Clear Calc Drug Dose 95.1 ml/min Estimated GFR () 107.7 Estimated GFR (Non- 92.9 BUN/Creatinine Ratio 20.9 Random Glucose 89 mg/dl Calcium Level 8.1 mg/dl Test 10/01/16 12:02 10/01/16 15:53 Hemoglobin 10.5 g/dL 10.5 g/dL Hematocrit 31.8 % 29.3 % Date/Time Source Procedure Growth Status 10/01/16 00:00 Stool C.difficile Toxin B Gene (PCR) - Final No C. difficile toxin B gene detected Complete 10/01/16 00:00 Stool Shiga Toxin Test Pending Received 10/01/16 00:00 Stool Stool Culture Pending Received Assessment & Plan GI BLEED: -dark red blood per rectum -continue protonix drip for total of 72 hours -GI consulted, patient underwent EGD and 2 duodenal ulcers were seen, neither were bleeding but one contained a vessel on which a clip was placed -IV fluids stopped now as patient taking is adequate PO -type and screen -monitor H&H and transfuse if Hb accordingly ANEMIA: Acute due to blood loss -will check outpatient records to find baseline Hb -discussed the possible need for a blood transfusion if further drop occurs, patient agreeable -monitor closely PRIOR HX OF ESOPHAGEAL RING DILATION: -patient reports undergoing EGD/colonoscopy over 10 years ago when he had an esophageal ring that required dilation OCCASIONAL MIGRAINE HUGHES: -was taking PRN advil infrequently; advised to refrain from NSAID use Current Inpatient Medications: Current Inpatient Medications Medications (Trade) Dose Ordered Sig/Karsten Route Start Time Stop Time Status Last Admin Dose Admin Acetaminophen (Tylenol Tab) 650 mg Q4H PRN PO 09/30/16 08:45 10/30/16 08:44 Ondansetron HCl (Zofran Inj) 4 mg Q6H PRN IV 09/30/16 08:45 10/30/16 08:44 Polyethylene (Miralax Powder Packet) 17 gm DAILY PRN PO 09/30/16 08:45 10/30/16 08:44 Pantoprazole Sodium 40 mg/ Dextrose 110 ml @ 20 mls/hr Q5H IV 09/30/16 13:15 10/30/16 13:14 10/01/16 18:24 20 MLS/HR Ioversol (Optiray 320) 125 ml UD PRN IV 09/30/16 09:15 10/04/16 09:14 Miscellaneous (Iv Fluids Completed) 1 ea PRN PRN N/A 09/30/16 13:45 09/30/17 13:44 10/01/16 14:22 1 EA
[2016-10-01 20:16] LABS: HEMATOCRIT 28.5 % (42-52)
[2016-10-02] VITALS (9 sets, daily range): BP systolic 105–131; BP diastolic 56–82; PULSE 75–94; TEMP 36.4–37; O2SAT 93–99
[2016-10-02] MEDS: PANTOprazole INJ 40 MG in DEXTROSE 5% 100ML 100 ML IV SCH ×5 (00:02→21:00)
[2016-10-02 06:32] LABS: HEMATOCRIT 27.7 % (42-52)
[2016-10-02 07:16] LABS: BUN/CREATININE RATIO 9.7 (10-20); CALCIUM 8.6 mg/dl (8.5-10.1); CREATININE 0.99 mg/dl (0.60-1.40); POTASSIUM 3.9 mmol/L (3.5-5.1)
--- NOTE | 2016-10-02 12:53 | Gastroenterology Progress Note ---
Progress Note Date of Service: Oct 02, 2016 Subjective Pt evaluation today including: conversation w/ patient, conversation w/ family , physical exam Doing great, eating regular lunch, no bleeding, nausea or vomiting Review of Systems Constitutional: No see HPI, No fever, No chills, No sweats, No weight loss, No weakness, No fatigue, No problem reported Eyes: No see HPI, No worsening of vision, No eye pain, No redness, No discharge , No diplopia, No problem reported Respiratory: No see HPI, No cough, No sputum, No wheezing, No shortness of breath, No dyspnea on exertion, No dyspnea at rest, No hemoptysis, No problem reported Cardiac: No see HPI, No chest pain, No orthopnea, No PND, No edema, No claudication, No palpitations, No problem reported Abdomen: No see HPI, No pain, No nausea, No vomiting, No diarrhea, No constipation, No GI bleeding, No dysphagia, No odynophagia, No acolic stools, No jaundice, No dark urine, No problem reported Medications Current Inpatient Medications Medications (Trade) Dose Ordered Sig/Karsten Route Start Time Stop Time Status Last Admin Dose Admin Acetaminophen (Tylenol Tab) 650 mg Q4H PRN PO 09/30/16 08:45 10/30/16 08:44 Ondansetron HCl (Zofran Inj) 4 mg Q6H PRN IV 09/30/16 08:45 10/30/16 08:44 Polyethylene (Miralax Powder Packet) 17 gm DAILY PRN PO 09/30/16 08:45 10/30/16 08:44 Pantoprazole Sodium 40 mg/ Dextrose 110 ml @ 20 mls/hr Q5H IV 09/30/16 13:15 10/30/16 13:14 10/02/16 09:30 20 MLS/HR Ioversol (Optiray 320) 125 ml UD PRN IV 09/30/16 09:15 10/04/16 09:14 Miscellaneous (Iv Fluids Completed) 1 ea PRN PRN N/A 09/30/16 13:45 09/30/17 13:44 10/01/16 14:22 1 EA Objective Vital Signs Date Time Temp Pulse Resp B/P (MAP) Pulse Ox O2 Delivery O2 Flow Rate FiO2 10/02/16 12:16 96 Room Air 10/02/16 11:39 37.0 80 20 112/72 (85) 97 Room Air 10/02/16 08:01 96 Room Air 10/02/16 07:49 36.4 75 16 117/74 (88) 96 Room Air 10/02/16 04:00 Room Air 10/02/16 03:51 37.0 77 16 111/72 (85) 99 Room Air 10/01/16 23:59 Room Air 10/01/16 23:46 37.0 75 16 116/71 (86) 96 Room Air 10/01/16 20:00 Room Air 10/01/16 19:27 36.7 79 20 127/78 (94) 97 Room Air 10/01/16 16:02 36.6 76 18 141/87 (105) 99 Room Air 10/01/16 16:00 Room Air Physical Exam General Appearance: WD/WN, no apparent distress ENT: normal ENT inspection Neck: supple Cardiovascular: regular rate, rhythm Abdomen: normal bowel sounds, non tender Extremities: normal range of motion, normal inspection 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 Laboratory Results Last 24 Hours Test 10/01/16 15:53 10/01/16 20:08 10/02/16 06:19 Hemoglobin 10.5 g/dL 9.9 g/dL 9.7 g/dL Hematocrit 29.3 % 28.5 % 27.7 % Sodium Level 143 mmol/L Potassium Level 3.9 mmol/L Chloride Level 109 mmol/L Carbon Dioxide Level 28 mmol/L Anion Gap 6.0 mmol/L Blood Urea Nitrogen 10 mg/dl Creatinine 0.99 mg/dl Est Creatinine Clear Calc Drug Dose 81.8 ml/min Estimated GFR () 94.2 Estimated GFR (Non- 81.3 BUN/Creatinine Ratio 9.7 Random Glucose 97 mg/dl Calcium Level 8.6 mg/dl Assessment and Plan 61 yo presenting with melena and presyncope with EGD revealing two ulcers in the duodenal bulb-one with possible visible vessel s/p mechanical prophylactic clip -No signs of bleeding, stable hb -Continue IV PPI for 72 hr total -BID PPI after d/c -Call with any clinical change
[2016-10-02] MEDS ORDERED: FRCT/ PO (17:58)
[2016-10-02] MEDS ORDERED: PANT40TA PO (17:58)
--- NOTE | 2016-10-02 19:00 | Progress Note ---
Medicine Progress Note Date & Time of Visit: Oct 02, 2016 at 19:00. Subjective Patient doing well, had a small loose bloody stool this AM. No other complaints. No additional episodes of syncope or dizziness. Tolerating PO without difficulty. No overnight events noted. Objective Last 8 Hrs Date Time Temp Pulse Resp B/P (MAP) Pulse Ox O2 Delivery O2 Flow Rate FiO2 10/02/16 16:28 96 Room Air 10/02/16 15:36 36.4 94 20 114/74 (87) 97 Room Air 10/02/16 12:16 96 Room Air 10/02/16 11:39 37.0 80 20 112/72 (85) 97 Room Air Physical Exam: GENERAL: Patient is in no acute distress. HEENT: No acute trauma, normocephalic, mucous membranes moist, no nasal congestion, no scleral icterus. NECK: No stridor, trachea is midline. LUNGS: Clear to auscultation bilaterally, no wheeze, no rhonchi, breath sounds equal. HEART: Without murmurs gallops or rubs, regular rate and rhythm. ABDOMEN: Soft, nontender, bowel sounds positive EXTREMITIES: No cyanosis or edema NEUROLOGIC: Oriented x 3, no acute motor or sensory deficits, no focal weakness. SKIN: No rash, no jaundice, no diaphoresis. Laboratory Results: Last 24 Hours Test 10/01/16 20:08 10/02/16 06:19 Hemoglobin 9.9 g/dL 9.7 g/dL Hematocrit 28.5 % 27.7 % Sodium Level 143 mmol/L Potassium Level 3.9 mmol/L Chloride Level 109 mmol/L Carbon Dioxide Level 28 mmol/L Anion Gap 6.0 mmol/L Blood Urea Nitrogen 10 mg/dl Creatinine 0.99 mg/dl Est Creatinine Clear Calc Drug Dose 81.8 ml/min Estimated GFR () 94.2 Estimated GFR (Non- 81.3 BUN/Creatinine Ratio 9.7 Random Glucose 97 mg/dl Calcium Level 8.6 mg/dl Assessment & Plan GI BLEED: -dark red blood per rectum -continue protonix drip for total of 72 hours -GI consulted, patient underwent EGD and 2 cratered duodenal ulcers were seen, neither were bleeding but one contained a vessel on which a clip was placed -IV fluids stopped now as patient taking in adequate PO -type and screen -monitor H&H and transfuse if Hb accordingly -probably discharge home tomorrow with BID PPI therapy ANEMIA: Acute due to blood loss -will check outpatient records to find baseline Hb -discussed the possible need for a blood transfusion if further drop occurs, patient agreeable -monitor closely -has been in range of 9's PRIOR HX OF ESOPHAGEAL RING DILATION: -patient reports undergoing EGD/colonoscopy over 10 years ago when he had an esophageal ring that required dilation OCCASIONAL MIGRAINE HUGHES: -was taking PRN advil infrequently; advised to refrain from NSAID use Current Inpatient Medications: Current Inpatient Medications Medications (Trade) Dose Ordered Sig/Karsten Route Start Time Stop Time Status Last Admin Dose Admin Acetaminophen (Tylenol Tab) 650 mg Q4H PRN PO 09/30/16 08:45 10/30/16 08:44 Ondansetron HCl (Zofran Inj) 4 mg Q6H PRN IV 09/30/16 08:45 10/30/16 08:44 Polyethylene (Miralax Powder Packet) 17 gm DAILY PRN PO 09/30/16 08:45 10/30/16 08:44 Pantoprazole Sodium 40 mg/ Dextrose 110 ml @ 20 mls/hr Q5H IV 09/30/16 13:15 10/30/16 13:14 10/02/16 15:53 20 MLS/HR Ioversol (Optiray 320) 125 ml UD PRN IV 09/30/16 09:15 10/04/16 09:14 Miscellaneous (Iv Fluids Completed) 1 ea PRN PRN N/A 09/30/16 13:45 09/30/17 13:44 10/01/16 14:22 1 EA
[2016-10-03] VITALS (7 sets, daily range): BP systolic 111–125; BP diastolic 71–77; PULSE 69–75; TEMP 36.5–37.1; O2SAT 95–98
[2016-10-03] MEDS: PANTOprazole INJ 40 MG in DEXTROSE 5% 100ML 100 ML IV SCH ×3 (02:00→11:06)
[2016-10-03 06:58] LABS: HEMATOCRIT 28.5 % (42-52); MEAN CELL VOLUME 89.9 fL (80-100); MEAN CORPUSCULAR HEMOGLOBIN 30.6 pg (25-34); MEAN PLATELET VOLUME 10.5 fL (7.4-10.4); PLATELET COUNT 147 K/uL (130-400); RED BLOOD COUNT 3.17 M/uL (4.7-6.1); WHITE BLOOD COUNT 6.64 K/uL (4.8-10.8)
[2016-10-03 07:33] LABS: BUN/CREATININE RATIO 11.9 (10-20); CALCIUM 8.2 mg/dl (8.5-10.1); CREATININE 0.89 mg/dl (0.60-1.40); POTASSIUM 3.8 mmol/L (3.5-5.1)
--- NOTE | 2016-10-03 08:59 | Gastroenterology Progress Note ---
Progress Note Date of Service: Oct 03, 2016 Subjective Pt evaluation today including: conversation w/ patient, physical exam, chart review, lab review, review of inpatient medication list Pt sitting up in bed, AAOx3, in NAD, reading the newspaper. Tolerating regular diet, w/o n/v, passing flatus but no solid BM yet. Denies any more blood stools. Hgb stable at 9 for last couple of days. Review of Systems Constitutional: No fever, No chills Respiratory: No cough Abdomen: No pain, No nausea, No vomiting, No GI bleeding Medications Current Inpatient Medications Medications (Trade) Dose Ordered Sig/Karsten Route Start Time Stop Time Status Last Admin Dose Admin Acetaminophen (Tylenol Tab) 650 mg Q4H PRN PO 09/30/16 08:45 10/30/16 08:44 Ondansetron HCl (Zofran Inj) 4 mg Q6H PRN IV 09/30/16 08:45 10/30/16 08:44 Polyethylene (Miralax Powder Packet) 17 gm DAILY PRN PO 09/30/16 08:45 10/30/16 08:44 Pantoprazole Sodium 40 mg/ Dextrose 110 ml @ 20 mls/hr Q5H IV 09/30/16 13:15 10/30/16 13:14 10/03/16 06:42 20 MLS/HR Ioversol (Optiray 320) 125 ml UD PRN IV 09/30/16 09:15 10/04/16 09:14 Miscellaneous (Iv Fluids Completed) 1 ea PRN PRN N/A 09/30/16 13:45 09/30/17 13:44 10/01/16 14:22 1 EA Objective Vital Signs Date Time Temp Pulse Resp B/P (MAP) Pulse Ox O2 Delivery O2 Flow Rate FiO2 10/03/16 08:28 96 Room Air 10/03/16 07:24 36.6 74 18 111/71 (84) 96 Room Air 10/03/16 04:00 Room Air 10/03/16 03:40 37.1 75 16 125/74 (91) 97 Room Air 10/02/16 23:59 Room Air 10/02/16 23:40 36.9 78 14 105/56 (72) 97 Room Air 10/02/16 20:00 Room Air 10/02/16 19:47 36.5 88 20 113/74 (87) 98 Room Air 10/02/16 16:28 96 Room Air 10/02/16 15:36 36.4 94 20 114/74 (87) 97 Room Air 10/02/16 12:16 96 Room Air 10/02/16 11:39 37.0 80 20 112/72 (85) 97 Room Air Physical Exam General Appearance: WD/WN, no apparent distress Eyes: normal inspection, PERRL, EOMI Neck: supple, no JVD, trachea midline Respiratory/Chest: normal breath sounds, no respiratory distress, no accessory muscle use Cardiovascular: regular rate, rhythm, no gallop, no murmur Abdomen: non tender, soft, + abnormal bowel sounds (hypoactive) Extremities: normal inspection, no pedal edema, no calf tenderness Neurologic/Psych: alert, normal mood/affect, oriented x 3 Skin: normal color, no jaundice, no rash Laboratory Results Last 24 Hours Test 10/03/16 06:33 White Blood Count 6.64 K/uL Red Blood Count 3.17 M/uL Hemoglobin 9.7 g/dL Hematocrit 28.5 % Mean Corpuscular Volume 89.9 fL Mean Corpuscular Hemoglobin 30.6 pg Mean Corpuscular Hemoglobin Concent 34.0 g/dl RDW Standard Deviation 39.9 fL RDW Coefficient of Variation 12.4 % Platelet Count 147 K/uL Mean Platelet Volume 10.5 fL Sodium Level 144 mmol/L Potassium Level 3.8 mmol/L Chloride Level 109 mmol/L Carbon Dioxide Level 32 mmol/L Anion Gap 3.0 mmol/L Blood Urea Nitrogen 11 mg/dl Creatinine 0.89 mg/dl Est Creatinine Clear Calc Drug Dose 90.9 ml/min Estimated GFR () 106.2 Estimated GFR (Non- 91.6 BUN/Creatinine Ratio 11.9 Random Glucose 104 mg/dl Calcium Level 8.2 mg/dl Assessment and Plan Impression Patient is a 61 year old male w melena and anemia, stool studies negative for infections, CT negative for EGD found duodenal ulcers treated w clip placements. He denies any more bloody stools, abd pain, n/v. H/H stable. Plan -Continue IV PPI for 72 hr total; then BID PPI after d/c x at least 8 weeks then daily. - Avoid NSAIDs, local intermodal truck driver steroids, ASA if possible - Offered repeat EGD to check for ulcer healing in 8 weeks' time but pt declined. He is also due for screening colonoscopy, he will discuss w PCP. OK for DC today from GI standpoint Late entry: Patient was seen and examined with Rossi Ashby on 10/03. Her note reflects our findings and plan.
--- NOTE | 2016-10-03 11:46 | Discharge Instructions ---
Discharge Instructions Date of Service Oct 03, 2016. Admission Reason for Admission: Near Syncope, Gi Bleed Discharge Discharge Diagnosis / Problem: GI bleed, Duodenal ulcers Discharge Goals Goal(s): Therapeutic intervention Activity Recommendations Activity Limitations: as noted below Lifting Limitations: gradually increase as tolerated Exercise/Sports Limitations: gradually increase as tolerated Please avoid any strenuous activity for at least 2 weeks. Gradually increase activity as tolerated. Break activities into smaller tasks when possible. . Instructions / Follow-Up Instructions / Follow-Up Please see Dr. Moya on October 06 at 12:45 PM for hospital follow up Please see GI for follow up Current Hospital Diet Patient's current hospital diet: Regular Diet Discharge Diet Recommended Diet: Regular Diet Procedures Procedures Performed: EGD with hemoclip of duodenal ulcer vessel Pending Studies Studies pending at discharge: no Laboratory Results 10/03/16 06:33 10/03/16 06:33 Test 10/03/16 06:33 Red Blood Count 3.17 M/uL (4.7-6.1) Mean Corpuscular Volume 89.9 fL (80-100) Mean Corpuscular Hemoglobin 30.6 pg (25-34) Mean Corpuscular Hemoglobin Concent 34.0 g/dl (32-36) RDW Standard Deviation 39.9 fL (36.4-46.3) RDW Coefficient of Variation 12.4 % (11.5-14.5) Mean Platelet Volume 10.5 fL (7.4-10.4) Anion Gap 3.0 mmol/L (3-11) Est Creatinine Clear Calc Drug Dose 90.9 ml/min Estimated GFR () 106.2 Estimated GFR (Non- 91.6 BUN/Creatinine Ratio 11.9 (10-20) Calcium Level 8.2 mg/dl (8.5-10.1) Medical Emergencies . Who to Call and When: Medical Emergencies: If at any time you feel your situation is an emergency, please call 911 immediately. . Non-Emergent Contact Non-Emergency issues call your: Primary Care Provider, Platform Consultant . . "Provider Documentation" section prepared by Lenora Cuevas. . VTE Core Measure Inpt VTE Proph given/why not?: SCD's
[2016-10-03] MEDS ORDERED: FRCT/ PO (11:53)
--- NOTE | 2016-10-03 15:02 | Discharge Summary ---
Discharge Summary Date of Service Oct 03, 2016. Discharge Summary Admission Date: Oct 01, 2016 at 11:20 Discharge Date: Oct 03, 2016 Discharge Disposition: Home Principal Diagnosis: Upper GI bleed, duodenal ulcers, near syncope, anemia Pending Studies/Follow-Up: Please draw labs CBC at follow up appt. (within 1 week of discharge) Medication Reconciliation New Medications: Acetamin/Butalbital/Caffeine (Fioricet) 1 Ea Tab 1 TAB PO Q8 PRN for Headache, #30 TAB Pantoprazole (Protonix) 40 Mg Tab 40 MG PO BID for 90 Days, #180 TAB Continued Medications: Calcium Carbonate (Tums) 500 Mg Chew 2 TAB PO UD Cetirizine/Pseudoephedrine (Zyrtec-D Er 5MG/120MG) Tabcr 1 TAB PO Q12H Admission Information HPI (per Admitting provider): Patient is a 61 yo male who presents to the ER for evaluation of bleeding per rectum and an episode of near syncope. The patient reports being in his usual state of health yesterday, he ate a late dinner and afterwards went to go to the bathroom and had an uncomfortable sensation in his abdomen accompanied by rumbling, and he subsequently had a large volume of diarrhea with dark red blood. He states that he continued to experience rumbling sensation and discomfort but not pain, until he took a zyrtec-D for congestion and went to bed. He awoke at 1:30 AM feeling very flushed and diaphoretic with symptoms of heartburn and took 2 tums. He didn't find much relief so he took 2 more tums and went to bed. He awoke this AM with similar abdominal discomfort/rumbling, and had another episode of diarrhea with dark red blood. He came out of the bathroom and felt lightheaded and dizzy and slowly slumped to the ground while maintaining consciousness. He also continued to leak dark red blood down his leg from his rectum after coming out of the bathroom this AM. No prior history of similar symptoms. Denies any history of anticoagulation. He takes advil occasionally for migraine headaches, last time was September 26 and . He takes no medications otherwise. Denies any symptoms of abdominal pain, nausea, or vomiting. Physical Exam (per Admitting): General Appearance: WD/WN, no apparent distress Head: normocephalic, atraumatic Eyes: PERRL, EOMI, sclerae normal ENT: hearing grossly normal Neck: no JVD, trachea midline Respiratory/Chest: chest non-tender, lungs clear, normal breath sounds, no respiratory distress, no accessory muscle use Cardiovascular: regular rate, rhythm, no edema, no gallop, no JVD, no murmur Abdomen/GI: normal bowel sounds, non tender, soft, no organomegaly, + fecal occult blood Back: normal range of motion Extremities/Musculoskelatal: no pedal edema Neurologic/Psych: no motor/sensory deficits, alert, normal mood/affect, oriented x 3 Skin: normal color, warm/dry, no rash Hospital Course GI BLEED: -dark red blood per rectum -continue protonix drip for total of 72 hours -GI consulted, patient underwent EGD and 2 cratered duodenal ulcers were seen, neither were bleeding but one contained a vessel on which a clip was placed -IV fluids stopped as patient taking in adequate PO -type and screen -monitor H&H and transfuse if Hb accordingly -discharge with BID PPI therapy ANEMIA: Acute due to blood loss -will check outpatient records to find baseline Hb -discussed the possible need for a blood transfusion if further drop occurs, patient agreeable -monitor closely -has been in range of 9's PRIOR HX OF ESOPHAGEAL RING DILATION: -patient reports undergoing EGD/colonoscopy over 10 years ago when he had an esophageal ring that required dilation OCCASIONAL MIGRAINE HUGHES: -was taking PRN advil infrequently; advised to refrain from NSAID use PHYSICAL EXAM ON DAY OF DISCHARGE: GENERAL: Patient is in no acute distress. HEENT: No acute trauma, mucous membranes moist, no nasal congestion, no scleral icterus. NECK: No stridor, trachea is midline. LUNGS: Clear to auscultation bilaterally, no wheeze, no rhonchi, breath sounds equal. HEART: Without murmurs gallops or rubs, regular rate and rhythm. ABDOMEN: Soft, nontender, bowel sounds positive EXTREMITIES: No cyanosis or edema NEUROLOGIC: Oriented x 3, no acute motor or sensory deficits, no focal weakness. SKIN: No rash, no jaundice, no diaphoresis. Total time spent on discharge = 37 This includes examination of the patient, discharge planning, medication reconciliation, and communication with other providers. Discharge Instructions 10/03/16 06:33 10/03/16 06:33 Test 10/03/16 06:33 Red Blood Count 3.17 M/uL (4.7-6.1) Mean Corpuscular Volume 89.9 fL (80-100) Mean Corpuscular Hemoglobin 30.6 pg (25-34) Mean Corpuscular Hemoglobin Concent 34.0 g/dl (32-36) RDW Standard Deviation 39.9 fL (36.4-46.3) RDW Coefficient of Variation 12.4 % (11.5-14.5) Mean Platelet Volume 10.5 fL (7.4-10.4) Anion Gap 3.0 mmol/L (3-11) Est Creatinine Clear Calc Drug Dose 90.9 ml/min Estimated GFR () 106.2 Estimated GFR (Non- 91.6 BUN/Creatinine Ratio 11.9 (10-20) Calcium Level 8.2 mg/dl (8.5-10.1)
== END 2016-10-03 16:05 | disposition home or self-care (01) | DRG 378 ==
LOC: EDBD 07:21 → C.EDB 07:22 → INTOOBSV 08:43 → C.2T 08:43 → ENRESERV 08:57 → EDBEDREQ 09:09 → OBSVTOIN 10-01 11:20
PROVIDERS: ADMIT Internal Medicine; ATTEND Internal Medicine
PROC: 0W3P8ZZ Control Bleeding in Gastrointestinal Tract, Via Natural or Artificial Opening Endoscopic (ICD-10-PCS; principal; 2016-09-30 14:58)
DX: K26.4 Chronic or unspecified duodenal ulcer with hemorrhage (principal); D62 Acute posthemorrhagic anemia; R55 Syncope and collapse; K21.9 Gastro-esophageal reflux disease without esophagitis; Z83.79 Family history of other diseases of the digestive system; Z79.899 Other long term (current) drug therapy